=== PATIENT | female | born 1975 | race Caucasian/White ===

== ENCOUNTER 2020-11-27 15:09 | Emergency (ER) | payer OTHER, SELFPAY ==
--- NOTE | 2020-11-27 15:11 | ED.SKABFB ---
HPI - Skin/Abscess/Foreign Bdy General Chief complaint: Skin/Abscess/Foreign Body Stated complaint: Rash Time Seen by Provider: 11/27/20 15:10 Source: patient Mode of arrival: ambulatory Limitations: no limitations History of Present Illness HPI narrative: Patient is a 45-year-old female who presents with. It rash to face, neck and left abdomen. Patient reports she was spraying bleach onto ceiling 2 days ago and reports rash starting yesterday afternoon. Patient denies use of new soaps, lotions, detergents or other potential skin irritants. She denies history of allergies to foods as well. She reports using [id number] hydrocortisone without relief. She denies all other complaints. She denies significant medical history. MD complaint: rash Related Data Home Medications Medication Instructions Recorded Confirmed albuterol sulfate 90 mcg/actuation 2 puff INHALATION Q4-6H PRN gm 01/04/20 11/15/20 aerosol inhaler Allergies Allergy/AdvReac Type Severity Reaction Status Date / Time No Known Allergies Allergy Verified 11/15/20 10:43 Review of Systems Review of Systems: Narrative: CONSTITUTIONAL: Denies fever, chills, or sweats. EYES: Denies visual changes, redness, or discharge. ENT: Denies rhinorrhea, congestion, sore throat, or otalgia. CARDIOVASCULAR: Denies chest pain, palpitations, or edema. RESPIRATORY: Denies cough or dyspnea. GASTROINTESTINAL: Denies abdominal pain, nausea, vomiting, or diarrhea. GENITOURINARY: Denies dysuria or hematuria. SKIN: Reports rash to face, neck and left abdomen MUSCULOSKELETAL: Denies back pain, joint pain, or myalgia. NEUROLOGIC: Denies headache, numbness, dizziness, or weakness. PSYCHIATRIC: Denies anxiety or depression. [facility] Family History Family History Mother Family history of chronic obstructive pulmonary disease Social History Social History Smoking status: Never smoker Second hand tobacco smoke exposure: Yes Alcohol intake: never Drinks per week: 1 Substance use: never Gender identity (if verbalized by the patient): Female Comments At the time of signature, I have reviewed and agree with nursing past medical, surgical, social, and family history unless otherwise noted. Please see nursing chart for further information. There is no relevant family history pertinent to the presenting complaint. Exam Narrative: Exam Narrative: GENERAL: Well-appearing, well-nourished, and in no acute distress. HEAD: Normocephalic, atraumatic. EYES: EOMI. No redness or drainage. Conjunctiva are normal. ENT: Mucous membranes pink and moist. CHEST: No respiratory distress. HEART: Regular rate and rhythm. EXTREMITIES: Normal range of motion. SKIN: Patient has fine maculopapular rash to face, neck and left abdomen NEURO: No focal deficits. Alert and oriented x3. Gait steady. PSYCH: Normal affect. No signs of depression or anxiety. MDM - Skin/Abscess/Foreign Bdy MDM Narrative Medical decision making narrative: Patient appears to have contact dermatitis rash to face, neck and abdomen. Patient started on prednisone at this time and corticosteroid cream. Discussed follow up with PCP in 3-5 days if symptoms persist. Patient is stable for discharge to home with outpatient follow up as discussed. Differential Diagnosis Differential diagnosis: Likely abscess of skin or subcutaneous tissue, viral exanthem, urticaria, eczema and contact dermatitis Medical Records Attestation: I reviewed the patient's medical records. Critical Care Time Critical Care Time Critical Care Time: No Discharge Plan Discharge Clinical Impression: Contact dermatitis Patient Disposition: Home, Self-Care Condition: Stable Instructions: Contact Dermatitis (ED) Additional Instructions: Take prednisone as directed. Use steroid cream as directed. Follow-up with your PCP in 3
[2020-11-27 15:16] VITALS: BP 120/75; PULSE 77; RESP 18; TEMP 37.1; O2SAT 100
== END 2020-11-27 15:43 | disposition home or self-care (01) ==
PROVIDERS: Emergency Provider Nurse Practitioner; PCP Internal Medicine
DX: L25.9 Unspecified contact dermatitis, unspecified cause (principal); J45.909 Unspecified asthma, uncomplicated
CPT/HCPCS: 99213; G0463

== ENCOUNTER 2023-11-23 12:49 | Emergency (ER) | payer OTHER, SELFPAY ==
--- NOTE | ~2023-11-23 | XR_ITS ---
EXAMINATION: [id number] DATE: 11/23/2023 13:18 INDICATION: Anterolateral left rib pain TECHNIQUE: A frontal inspiratory view of the chest and 3 views of the left ribs were obtained. COMPARISON: Chest radiograph dated 07/08/2018 FINDINGS: No rib fractures identified. No pneumothorax. No focal infiltrates, pleural effusion or pulmonary baldev ma. Cardiomediastinal silhouette is normal. IMPRESSION: 1. No rib fracture or acute cardiopulmonary disease. Reviewed, dictated and finalized at location A.
[2023-11-23 12:58] VITALS: BP 113/79; PULSE 87; RESP 16; TEMP 36.8; O2SAT 100
--- NOTE | 2023-11-23 13:00 | ED.CHESTPAIN ---
HPI - Chest Pain General Chief Complaint: Fall Stated Complaint: Left Rib Pain Time Seen by Provider: 11/23/23 13:00 Source: patient Mode of arrival: ambulatory Limitations: no limitations History of Present Illness HPI narrative: Gladys is a 48-year-old female patient presenting to the clinic today with complaints of left-sided rib pain. She reports that she was tubing yesterday and [place] and fell off the tube and injured her left rib. She states the white caps were very high yesterday and the water was rough. States it hurts to the left ribs when she coughs, sneezes, or deep breathes. Related Data Home Medications Medication Instructions Recorded Confirmed ascorbate calcium (vitamin C) 500 500 mg PO DAILY 08/30/20 11/23/23 mg tablet Allergies Allergy/AdvReac Type Severity Reaction Status Date / Time No Known Allergies Allergy Verified 11/23/23 13:02 Review of Systems Review of Systems: Pertinent positives per HPI. Patient denies any fever, chills, rash, headache, visual changes, dizziness, cough, runny nose, sore throat, shortness of breath, chest pain, palpitations, nausea, vomiting, diarrhea, constipation, abdominal pain, or any urinary issues. PMFSH Family History Family History Mother Family history of chronic obstructive pulmonary disease Social History Social History Years smoked: 14 Smoking status: Former smoker Tobacco type: cigarettes Second hand tobacco smoke exposure: Yes Smoking end date: 07/03/18 Alcohol intake: never Drinks per week: 1 Substance use: never Lack of Transportation: No Lack of Food: Never True Current Housing: I Have Housing Concerned About Future Housing: No Difficulty Paying Gas/Electric Bills: No Difficulty Paying for Meds: No Currently Unemployed: YES Education: High School Diploma/GED Difficulty w/ Childcare or Family Care: No Gender identity (if verbalized by the patient): Female Comments At the time of my signature, I reviewed and agree with the nursing past medical, surgical, social, and family history. There is no relevant family history pertinent to the patient complaint. Exam Narrative: General: Well-developed, well nourished, in no apparent distress Head: Normocephalic, atraumatic. Chest wall: Even rise and fall of the chest wall with respirations, no bruising or swelling noted, tender to palpation over the for 5/6 anterior lateral ribs Cardio: Regular rate and rhythm, s1 and s2 normal, no murmur appreciated. Resp: Clear to auscultation bilaterally, no rhonchi, rales, wheezing or rubs. Extremities: No deformity, no edema, no cyanosis, capillary refill less than 2 seconds, peripheral pulses palpable and strong. Integumentary: [place], warm, and dry, intact without lesion, no rashes. Course Course Emergency Course: Portions of this record may have been created with voice recognition software. Level of Care: Express Care Visit Vital Signs Vital signs: Vital Signs Temperature 36.8 C 11/23/23 12:58 Pulse Rate 87 11/23/23 12:58 Respiratory Rate 16 11/23/23 12:58 Blood Pressure 113/79 11/23/23 12:58 Pulse Oximetry 100 11/23/23 12:58 Temperature 36.8 C 11/23/23 12:58 Pulse Rate 87 11/23/23 12:58 Respiratory Rate 16 11/23/23 12:58 Blood Pressure 113/79 11/23/23 12:58 Pulse Oximetry 100 11/23/23 12:58 Vital signs reviewed MDM - Chest Pain MDM Narrative Medical decision making narrative: At the time of visit patient is resting comfortably on the exam table. Patient appears to be nontoxic. Diagnostics: X-ray of the left ribs was performed and were negative for any sign of fracture or malalignment the left rib. Plan: I suspect patient has a left wrist contusion. Prescription for naproxen was sent to the pharmacy Supportive measures were discus
== END 2023-11-23 13:52 | disposition home or self-care (01) ==
PROVIDERS: Emergency Provider Nurse Practitioner Family; PCP Internal Medicine
DX: S20.212A Contusion of left front wall of thorax, initial encounter (principal); X58.XXXA Exposure to other specified factors, initial encounter; Y93.16 Activity, rowing, canoeing, kayaking, rafting and tubing; Z87.891 Personal history of nicotine dependence
CPT/HCPCS: 71101; 99213; G0463